=== PATIENT | female | born 1950 | race Caucasian/White ===

== ENCOUNTER 2017-06-23 08:11 | Day surgery (SDC) | payer OTHER, MEDICARE ==
[~2017-06-23] VITALS: Ht 160 cm; Wt 65.5 kg
[~2017-06-23 08:11] MED LIST: LEVO25TA54 PO; MYCO250C7 PO; PANT40TA25 PO; PRED5TAB PO; PREG50 PO; SODIUM CHLORIDE 0.9% 1000ML 1,000 ML IV ONE; ZOLP10TA2 PO; [UNRECOGNIZED DRUG - CODE] MC
[2017-06-23 08:48] LABS: BASOPHILS % (AUTO) 0.6 % (0.0-5.0); EOSINOPHILS % (AUTO) 2.6 % (0.0-8.0); HEMATOCRIT 48.3 % (36-48); LYMPHOCYTES % (AUTO) 40.4 % (21.0-51.0); MEAN CORPUSCULAR HEMOGLOBIN 30.8 pg (27.0-33.0); MEAN CORPUSCULAR HGB CONC 33.7 g/dL (32.0-36.0); MEAN CORPUSCULAR VOLUME 91.4 fL (79-99); MONOCYTES % (AUTO) 6.4 % (3.0-13.0); PLATELET COUNT (AUTO) 280 K/uL (130-400); RED BLOOD CELL COUNT(AUTO) 5.29 MIL/uL (4.00-5.50); WHITE BLOOD COUNT (AUTO) 8.4 K/uL (4.8-10.8)
[2017-06-23 08:53] VITALS: BP 155/90
[2017-06-23 09:04] LABS: ALBUMIN 3.9 g/dL (3.5-5.0); BILIRUBIN,TOTAL 1.5 mg/dL (0.2-1.0); CREATININE 0.8 mg/dL (0.5-1.5)
[2017-06-23] MEDS ORDERED: ISOVUE-370 50ML VIAL IV ONE (09:13)
[2017-06-23] MEDS ORDERED: FENTANYL CITRATE PF 50 MCG/1 ML 2ML VIAL ONE (10:00)
[2017-06-23] MEDS ORDERED: PROPOFOL 10 MG/ML 20ML VIAL IV ONE (10:00)
== END 2017-06-23 11:20 | disposition home or self-care (01) ==
LOC: DAH 08:11
PROVIDERS: ATTEND Internal Medicine Gastroenterology
DX: K83.8 Other specified diseases of biliary tract (principal); M19.90 Unspecified osteoarthritis, unspecified site; E03.9 Hypothyroidism, unspecified; K21.9 Gastro-esophageal reflux disease without esophagitis; Z87.19 Personal history of other diseases of the digestive system; Z87.01 Personal history of pneumonia (recurrent); Z94.0 Kidney transplant status
CPT/HCPCS: 36415; 43264; 74328; 80053; 83690; 85025; A4606; C1769; J2704; J3010; J7030; Q9967; 74330; G9654

== ENCOUNTER 2019-05-26 08:45 | Day surgery (SDC) | payer OTHER ==
[2019-05-26] VITALS (14 sets, daily range): BP systolic 136–158; BP diastolic 65–87
[~2019-05-26] VITALS: Ht 167.6 cm; Wt 66.2 kg
[2019-05-26] MEDS ORDERED: CHOL200016 PO (11:25)
[2019-05-26] MEDS ORDERED: ATOR40TA71 PO (11:25)
[2019-05-26] MEDS ORDERED: METO25TA6 PO (11:25)
[2019-05-26] MEDS ORDERED: ASPI-555 PO (11:25)
[2019-05-26] MEDS ORDERED: LEVO50TA11 PO (11:25)
[2019-05-26] MEDS ORDERED: INDOMETHACIN 50 MG SUPP.RECT RC SCH (11:45)
[2019-05-26] MEDS ORDERED: PROPOFOL 10 MG/ML 20ML VIAL IV ONE (12:44)
[2019-05-26] MEDS ORDERED: SUCCINYLCHOLINE 200MG/10ML SYR ONE (12:44)
[2019-05-26] MEDS ORDERED: ESMOLOL HCL 10 MG/ML 10 ML VIAL ONE (12:46)
[2019-05-26] MEDS ORDERED: IOHEXOL-350 50ML VIAL IV ONE (12:54)
== END 2019-05-26 14:48 | disposition home or self-care (01) ==
LOC: DAH 08:45 → ENDO 08:45
PROVIDERS: ATTEND Internal Medicine
DX: R93.2 Abnormal findings on diagnostic imaging of liver and biliary tract (principal); F10.21 Alcohol dependence, in remission; E03.9 Hypothyroidism, unspecified; I25.10 Atherosclerotic heart disease of native coronary artery without angina pectoris; F17.210 Nicotine dependence, cigarettes, uncomplicated; Z79.82 Long term (current) use of aspirin; Z79.899 Other long term (current) drug therapy; Z94.0 Kidney transplant status; Z90.49 Acquired absence of other specified parts of digestive tract; Z98.890 Other specified postprocedural states; Z95.1 Presence of aortocoronary bypass graft; Z83.3 Family history of diabetes mellitus; Z82.49 Family history of ischemic heart disease and other diseases of the circulatory system
CPT/HCPCS: 43260; 74328; A4215 ×3; A4221; A4222; A4223; A4606; A4663; C1769; J0330; J2704; J7030; Q9967; 74330; J3490

== ENCOUNTER 2023-05-19 10:15 | Day surgery (SDC) | payer MEDICARE, OTHER ==
[2023-05-18 13:18] LABS: BASOPHILS # (AUTO) 0.04 K/uL (0.00-0.20); BASOPHILS % (AUTO) 0.4 % (0.0-5.0); EOSINOPHILS # (AUTO) 0.17 K/uL (0.00-0.70); EOSINOPHILS % (AUTO) 1.6 % (0.0-8.0); HEMATOCRIT 46.5 % (36-48); IMMATURE GRANULOCYTE ABSOLUTE 0.05 K/uL (0-1); LYMPHOCYTES # (AUTO) 2.2 K/uL (1.0-4.8); LYMPHOCYTES % (AUTO) 21.1 % (21.0-51.0); MEAN CORPUSCULAR HEMOGLOBIN 28.5 pg (27.0-33.0); MEAN CORPUSCULAR VOLUME 88.9 fL (79-99); MONOCYTES # (AUTO) 0.6 K/uL (0.1-1.0); MONOCYTES % (AUTO) 5.3 % (3.0-13.0); NEUTROPHILS # (AUTO) 7.6 K/uL (1.8-7.7); NEUTROPHILS % (AUTO) 71.1 % (40.0-77.0); PLATELET COUNT (AUTO) 256 K/uL (130-400); RED BLOOD CELL COUNT(AUTO) 5.23 MIL/uL (4.00-5.50); RED CELL DISTRIBUTION WIDTH 14.1 % (11.0-15.5); WHITE BLOOD COUNT (AUTO) 10.6 K/uL (4.8-10.8)
[2023-05-18 13:36] LABS: INR 0.97 (0.85-1.15); PROTHROMBIN TIME 11.3 SEC (9.6-11.6)
[2023-05-18 13:53] LABS: BILIRUBIN,TOTAL 1.2 mg/dL (0.2-1.0); CREATININE 0.8 mg/dL (0.5-1.5); POTASSIUM 3.4 mmol/L (3.5-5.1); TOTAL PROTEIN, SERUM 7.8 g/dL (6.0-8.3)
[~2023-05-19] VITALS: Ht 167.6 cm; Wt 59.0 kg
[2023-05-19] VITALS (26 sets, daily range): BP systolic 132–191; BP diastolic 66–105; PULSE 53–72; RESP 14–18
[~2023-05-19 10:15] MED LIST changes: +0.9%NACL 1000ML 1,000 ML IV ONE; +ATOR40TA69 PO; +CYCL5TAB PO; +DICY20TA3 PO; +FAMO40TA7 PO; -LEVO25TA54 PO; +LEVO50CA4 PO; +METO-408 PO; +MYCO250C36 PO; -MYCO250C7 PO; -PANT40TA25 PO; -PREG50 PO; -SODIUM CHLORIDE 0.9% 1000ML 1,000 ML IV ONE; +TRAM50TA4 PO; -ZOLP10TA2 PO; +ZOLP5TAB8 PO
[2023-05-19] MEDS ORDERED: IOHEXOL-350 50ML VIAL IV ONE (11:06)
[2023-05-19] MEDS ORDERED: PROPOFOL 10 MG/ML 20ML VIAL IV ONE (11:12)
[2023-05-19] MEDS ORDERED: SUCCINYLCHOLINE CHLORIDE 20 MG/ML 10 ML VIAL ONE (11:12)
[2023-05-19] MEDS ORDERED: LIDOCAINE PF 100MG/5ML (2%) SYRINGE 5ML ONE (11:13)
[2023-05-19] MEDS ORDERED: INDOMETHACIN 100 MG SUPP.RECT RC ONE (11:30)
[2023-05-19] MEDS ORDERED: FENTANYL CITRATE PF 50 MCG/1 ML 2ML VIAL ONE (12:45)
[2023-05-19] MEDS ORDERED: FENTANYL CITRATE PF 50 MCG/1 ML 2ML VIAL IVP PRN (12:50)
[2023-05-19] MEDS ORDERED: ONDANSETRON 4MG INJ ONE (14:03)
== END 2023-05-19 14:25 | disposition home or self-care (01) ==
LOC: DAH 10:15 → ENDO 10:15
PROVIDERS: ATTEND Internal Medicine Gastroenterology
DX: K80.50 Calculus of bile duct without cholangitis or cholecystitis without obstruction (principal); R10.11 Right upper quadrant pain; E03.9 Hypothyroidism, unspecified; M32.8 Other forms of systemic lupus erythematosus; Z79.899 Other long term (current) drug therapy; Z79.01 Long term (current) use of anticoagulants; Z79.82 Long term (current) use of aspirin; Z90.49 Acquired absence of other specified parts of digestive tract; Z98.890 Other specified postprocedural states; Z86.010 Personal history of colon polyps; Z80.0 Family history of malignant neoplasm of digestive organs
CPT/HCPCS: 80053; 85025; 85610; 36415; 74330; 43262; 43264; J3010; J0330; J7030 ×2; J2001; J2704; J2405; Q9967; A4620; A4215 ×2; A4223; A7002; A4222; A4221; A4663; A4216; A6206; A4606; C1769; C1773; J3490